=== PATIENT | male | born 1975 | race African-American/Black ===

== ENCOUNTER 2020-02-05 11:49 | Emergency (ER) | payer SELFPAY ==
[~2020-02-05] VITALS: Ht 175.3 cm; Wt 77.1 kg
[2020-02-05] MEDS ORDERED: Lidocaine 1% MPF 10mg/ml 5ml INJ ONE (12:45)
[2020-02-05] MEDS ORDERED: Azithromycin 250mg tab ORAL ONE (12:45)
[2020-02-05 13:31] LABS: APPEARANCE,URINE SLIGHTLY CLOUDY; BILIRUBIN, URINE NEGATIVE (NEGATIVE); GLUCOSE, URINE (UA) NEGATIVE (NEGATIVE); KETONES,URINE 2+ (NEGATIVE); LEUKOCYTE ESTERASE ,URINE 3+ (NEGATIVE); NITRITE,URINE NEGATIVE (NEGATIVE); PH,URINE 7 (4.5-8.0); PROTEIN,URINE 1+ (NEGATIVE); UROBILINOGEN,URINE 4 MG/DL (0.0-1.0)
[2020-02-05 13:48] LABS: COLOR,URINE YELLOW
--- NOTE | 2020-02-05 14:00 | Emergency Room Report ---
History of Present Illness General Chief Complaint: Male Urogenital Problems Source: Patient Present Illness HPI 44-year-old male with no no signal past medical history here complaining of 3 days of dysuria and a green penile discharge after sexual encounter without protection. Patient is also here with his partner who appears to have similar symptoms. Denies any suprapubic pain, testicular pain or swelling, low back pain, fever and chills, nausea vomiting. Denies any hematuria. Has not taken medication for symptom relief. Does not know STD status of the sexual partner. 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 Patient History Past Medical History: see triage record Past Surgical History: none Pertinent Family History: none Immunizations: UTD Reviewed Nursing Documentation: PMH: Agreed; PSxH: Agreed Nursing Documentation-PMH Past Medical History: No History, Except For Hx Hypertension: Yes Review of Systems All Other Systems: negative except mentioned in HPI Physical Exam Vital Signs Date Time Temp Pulse Resp B/P (MAP) Pulse Ox O2 Delivery O2 Flow Rate FiO2 02/05/20 12:08 97.3 73 20 155/103 (120) 98 Room Air Sp02 EP Interpretation: reviewed, normal General Appearance: no apparent distress, alert, GCS 15, non-toxic Head: normocephalic, atraumatic Eyes: bilateral eye normal inspection, bilateral eye PERRL ENT: hearing grossly normal, normal pharynx, no angioedema, normal voice Neck: full range of motion, supple/symm/no masses Respiratory: chest non-tender, lungs clear, normal breath sounds, speaking full sentences Cardiovascular #1: regular rate, rhythm, no edema Gastrointestinal: normal bowel sounds, non tender, soft, non-distended, no guarding, no rebound Rectal: deferred Genitourinary: no CVA tenderness Musculoskeletal: normal inspection Neurologic: alert, motor strength/tone normal, oriented x3, sensory intact, responsive, speech normal Psychiatric: normal inspection Skin: normal color Lymphatic: normal inspection Medical Decision Making PA Attestation All my diagnosis and treatment plans were reviewed ad discussed with my supervising physician Dr. Arriaga Diagnostic Impression: Primary Impression: Penile discharge Additional Impression: UTI (urinary tract infection) ER Course 44-year-old male with no no signal past medical history here complaining of 3 days of dysuria and a green penile discharge after sexual encounter without protection. Patient is also here with his partner who appears to have similar symptoms. Denies any suprapubic pain, testicular pain or swelling, low back pain, fever and chills, nausea vomiting. Denies any hematuria. Has not taken medication for symptom relief. Does not know STD status of the sexual partner. Denies penile rash, pruritus Ddx considered but are not limited to: , chlamydia, Gonorrhea, syphilis, HIV, herpes 1 or 2 Vital signs: are WNL, pt. is afebrile H&PE are most consistent with : Penile discharge possibly secondary to chlamydia or gonorrhea, UTI ORDERS: UA, urince cx, Keflex ED INTERVENTIONS: Rocephin IM, azithromycin p.o. DISCHARGE: At this time pt. is stable for d/c to home. Will provide printed patient care instructions, and any necessary prescriptions. Care plan and follow up instructions have been discussed with the patient prior to discharge. Patient take medication as directed, condom use advised, gave a list of STD clinics for patient to follow-up with patient agrees with the above management. Patient is aware that we do not test routinely for STDs here. If worsening symptoms return to the emergency room Last Vital Signs Date Time Temp Pulse Resp B/P (MAP) Pulse Ox O2 Delivery O2 Flow Rate FiO2 02/05/20 12:08 97.3 73 20 155/103 (120) 98 Room Air Disposition: HOME, SELF-CARE Condition: Stable Scripts Cephalexin* (KEFLEX*) 500 Mg Capsule 500 MG ORAL EVERY 12 HOURS for 7 Days, #14 CAP 0 Refills Prov: Carlos Carbajal 02/05/20 Patient Instructions: Chlamydia, Male, Gonorrhea, Urinary Tract Infection Additional Instructions: Take medication as directed, follow primary care provider, if worsening symptoms return to the emergency Carlos Carbajal Feb 05, 2020 14:00
[2020-02-05] MEDS ORDERED: CEPHALEXIN500 MG ORAL (14:01)
--- NOTE | 2020-02-05 14:10 | NUR ---
ED Nurse Note: Pt cleared by health care Provider for discharge. DC instructions/prescription was given and explained to pt and verbalized understanding of teachings. All medical deviecs such as ID band removed. Pt is AAO x4, ambulatory and left with all personal belongings.
[2020-02-05 19:56] VITALS: BP 155/103
== END 2020-02-05 14:10 | disposition home or self-care (01) ==
LOC: EMR 12:20
DX: R36.9 Urethral discharge, unspecified (principal); N39.0 Urinary tract infection, site not specified; I10 Essential (primary) hypertension
CPT/HCPCS: 81003; 87086; 96372; 96374; 99284; J0696